=== PATIENT | female | born 1980 | race Caucasian/White ===

== ENCOUNTER 2020-03-23 08:40 | Emergency (ER) | payer OTHER, SELFPAY ==
[2020-03-23 08:43] VITALS: BP 151/100; PULSE 100; RESP 18; TEMP 36.8; O2SAT 100; BMI 22.6
--- NOTE | 2020-03-23 09:18 | XR_ITS ---
EXAMINATION: XR CHEST CLINICAL INFORMATION: Patient feeling short of breath, no cough COMPARISON: None TECHNIQUE: 2 views of the chest were obtained. FINDINGS: There is no focal consolidation. There is no pneumothorax. The trachea is midline. The cardiac mediastinal silhouette is not enlarged. There is no pleural effusion. Osseous structures are intact. Soft tissues are unremarkable. XR/XR chest 2V IMPRESSION: No acute cardiopulmonary process.
--- NOTE | 2020-03-23 09:20 | ECG_ITS ---
Test Reason : SOB Blood Pressure : / mmHG Vent. Rate : 064 BPM Atrial Rate : 064 BPM P-R Int : 142 ms QRS Dur : 082 ms QT Int : 400 ms P-R-T Axes : 077 042 062 degrees QTc Int : 412 ms Normal sinus rhythm Possible Left atrial enlargement Borderline ECG No previous ECGs available Referred By: Charissa Saeed Electronically Signed By:Bronson Boothe
--- NOTE | 2020-03-23 09:25 | ED_ITS ---
HPI - SOB/Dyspnea General Chief Complaint: Anxiety Stated Complaint: sob Time Seen by Provider: 03/23/20 09:08 Source: patient Mode of arrival: ambulatory Limitations: no limitations History of Present Illness HPI Narrative: 40yoF c PMHx of Bipolar presenting to the ED c c/o sob since tuesday. She reports she feels as she cannot catch her breath. Reports she also has been under lot of stress therefore is unsure if this is anxiety although has never felt this way and has had anxiety in the past. Denies any dizziness, headaches, changes in vision, N/V, paresthesias, chest pain, dyspnea on exertion, orthopnea, symptoms, extremity swelling, palpitations or any other symptoms complaints or concerns at this time. Related Data Previous Rx's Medication Instructions Recorded bacitracin zinc 500 unit/gram 1 appl TOPICAL BID 15 Days #14 g 02/18/20 topical ointment divalproex 250 mg tablet,delayed 250 mg PO BID 90 Days #180 tab 03/17/20 release cetirizine 10 mg tablet 10 mg PO DAILY 30 Days #30 tab 03/18/20 lorazepam [Ativan] 1 mg PO TID PRN #10 tab 03/23/20 Allergies Allergy/AdvReac Type Severity Reaction Status Date / Time No Known Allergies Allergy Unverified 11/29/19 18:19 [No Known Allergies*] barium sulfate AdvReac Unknown aggression Verified 03/28/18 00:00 Review of Systems Review of Systems: Constitutional : No OCPs, no recent surgery/trauma, no history of immobilization, no history of PE or DVT, denies recent travel, No Fever, No Chills ENT/Mouth : No Hoarseness, No sore throat, No Rhinorrhea Eyes: No Redness, No Discharge, No Vision Changes Cardiovascular : No Chest Pain, + SOB, No Dyspnea on Exertion, No Edema, no pleurisy, Respiratory : No Sputum, no stridor, no hemoptysis, Gastrointestinal : No Nausea, No Vomiting, No Diarrhea, No abdominal Pain Genitourinary : No Dysuria, No Hematuria Musculoskeletal : No joint pain, No Myalgias Extremities: no extremity swelling /pain Skin : No rash, no itching, no swelling Neuro : No Weakness, No Numbness, No Headache Psych : No anxiety, depression Heme/Lymph: No Bruising, No Bleeding Endocrine : No Polyuria, No Polydipsia Yes all other systems are reviewed and are negative [facility] Past Medical History Attestation statement: The following information was validated with the patient. Medical History Scar irritation Social History Social History Advance Directives: No Advance Directives Information Provided: No Physical Exam Vital Signs: Vital Signs: Last Vital Signs Temp 98.3 F 03/23/20 08:43 Pulse 100 03/23/20 08:43 Resp 18 03/23/20 08:43 BP 151/100 H 03/23/20 08:43 Pulse Ox 100 03/23/20 08:43 Body Mass Index 22.6 vital signs have been reviewed as normal and appeared to be correct. Blood pressure normal. Heart rate normal. Respiration rate normal. Temperature normal. Oxygen saturation normal. Appearance: Alert. Oriented X3. No acute distress. Head: Normal external exam. Normocephalic. Atraumatic. Eyes: PERRLA. EOMI. Conjunctiva and sclera normal. Eyelids normal. ENT:Pharynx normal. Uvula midline. Moist mucous membranes. No trismus noted. No drooling noted. No muffled voice noted. Neck: Normal inspection. Neck supple. FROM. No adenopathy. No meningeal signs. CVS: Normal heart rate and rhythm. Heart sound normal. No murmurs noted. Pulses normal throughout. Respiratory: No respiratory distress. Painless inspiration. Breath sounds normal. No wheezes/rales/rhonchi noted. Chest nontender. No accessory muscle usage noted or decreased air movement noted. Back: No CVA tenderness. Full range of motion noted. Skin: Skin warm and dry. Normal skin color. Normal skin turgor. No rashes/lesions/lacerations noted. Extremities: No lower extremity edema. No calf tenderness bilaterally. Extremities exhibit normal range of motion. Extremities nontender. Neuro: Oriented X 3. No motor deficit. No sensory deficit. Reflexes normal. Course Course Course Narrative: 9:20am - 40yoF c PMHx of Bipolar presenting to the ED c c/o sob since tuesday. - Concern for PE vs PNA vs Anxiety - Plan: Labs, CXR, EKG and re-evaluate Reevaluation(s) Reevaluation #1: - WBC 13,000. All other labs including a D-dimer is within normal limits. Chest x-ray within normal limits no evidence of acute processes noted. EKG normal sinus rhythm no acute ischemic changes noted. Patient most likely anxiety will DC home with a short script of Ativan and instructions to return if any new or worsening symptoms to follow up with primary care provider. Patient understands agrees the plan. Time: 10:32 MDM - SOB/Dyspnea Medical Records Attestation: I reviewed the patient's medical records. Lab Data Attestation: I reviewed the patient's lab results. Result diagrams: 03/23/20 09:34 03/23/20 09:34 Labs: Lab Results 03/23/20 03/23/20 03/23/20 Range/Units 09:34 09:34 09:34 WBC 13.1 H (4.8-10.8) X10*3/uL RBC 4.97 (4.20-5.50) X10*6/uL Hgb 15.1 (12.0-16.0) g/dl Hct 44.4 (37-47) % MCV 89.3 (80-98) fL MCH 30.4 (27.0-33.0) pg MCHC 34.0 (31.0-35.0) g/dl RDW 12.3 (11.0-16.0) % Plt Count 175 (160-400) X10*3/uL MPV 10.4 (9.4-12.3) fL Immature Gran % (Auto) 0.4 (0.0-0.4) % Neut % (Auto) 85.6 H (45-73) % Lymph % (Auto) 9.8 L (20-40) % [place] % (Auto) 3.3 (2-11) % Eos % (Auto) 0.4 (0-4) % Baso % (Auto) 0.5 (0-2) % Lymph # (Auto) 1.3 (1.2-4.9) X10*3/uL [place] # (Auto) 0.4 (0.1-1.2) X10*3/uL Eos # (Auto) 0.1 (0.0-0.4) X10*3/uL Baso # (Auto) 0.1 (0.0-0.2) X10*3/uL Abs Immat Gran (auto) 0.05 H (0.00-0.03) X10*3/uL Absolute Neuts (auto) 11.2 H (2.0-8.3) X10*3/uL Absolute Nucleated RBC 0.000 (0.0-0.012) X10*3/uL Nucleated RBC % (auto) 0.0 (0.0-0.2) /100WBC Hold Purple Top SEE NOTE PT (10.8-13.0) SEC INR (0.9-1.1) D-Dimer NG/ML Sodium 140 (135-145) mmol/L Potassium 4.8 (3.3-5.1) mmol/l Chloride 107 (96-108) mmol/L Carbon Dioxide 25 (22-29) mmol/L Anion Gap 13 (12-20) BUN 7 L (9-16) mg/dL Creatinine 0.71 (0.5-1.4) mg/dL Estim Creat Clear Calc 80.2 Estimated GFR > 60 Random Glucose 103 (60-115) mg/dL Calcium 9.2 (8.4-10.2) mg/dL 03/23/20 Range/Units 09:34 WBC (4.8-10.8) X10*3/uL RBC (4.20-5.50) X10*6/uL Hgb (12.0-16.0) g/dl Hct (37-47) % MCV (80-98) fL MCH (27.0-33.0) pg MCHC (31.0-35.0) g/dl RDW (11.0-16.0) % Plt Count (160-400) X10*3/uL MPV (9.4-12.3) fL Immature Gran % (Auto) (0.0-0.4) % Neut % (Auto) (45-73) % Lymph % (Auto) (20-40) % [place] % (Auto) (2-11) % Eos % (Auto) (0-4) % Baso % (Auto) (0-2) % Lymph # (Auto) (1.2-4.9) X10*3/uL [place] # (Auto) (0.1-1.2) X10*3/uL Eos # (Auto) (0.0-0.4) X10*3/uL Baso # (Auto) (0.0-0.2) X10*3/uL Abs Immat Gran (auto) (0.00-0.03) X10*3/uL Absolute Neuts (auto) (2.0-8.3) X10*3/uL Absolute Nucleated RBC (0.0-0.012) X10*3/uL Nucleated RBC % (auto) (0.0-0.2) /100WBC Hold Purple Top PT 12.2 (10.8-13.0) SEC INR 1.0 (0.9-1.1) D-Dimer < 200 NG/ML Sodium (135-145) mmol/L Potassium (3.3-5.1) mmol/l Chloride (96-108) mmol/L Carbon Dioxide (22-29) mmol/L Anion Gap (12-20) BUN (9-16) mg/dL Creatinine (0.5-1.4) mg/dL Estim Creat Clear Calc Estimated GFR Random Glucose (60-115) mg/dL Calcium (8.4-10.2) mg/dL Imaging Data Chest x-ray: Attestation: I personally reviewed and interpreted this imaging study as follows: Radiologist's impression: FINDINGS: There is no focal consolidation. There is no pneumothorax. The trachea is midline. The cardiac mediastinal silhouette is not enlarged. There is no pleural effusion. Osseous structures are intact. Soft tissues are unremarkable. IMPRESSION: No acute cardiopulmonary process. ECG Data Attestation: I personally reviewed and interpreted this ECG as follows: ECG interpretation date: 03/23/20 ECG interpretation time: 10:01 Interpretation: Normal sinus rhythm with a ventricular rate of 64 with a normal [place] interval normal QRS duration normal QT/QTC interval. No acute ischemic changes noted. Discharge Plan Discharge Clinical Impression: Acute anxiety, Hyperventilation Patient Disposition: Home, Self-Care Instructions: Hyperventilation (ED), Anxiety (ED) Prescriptions: New lorazepam [Ativan] 1 mg tablet 1 mg PO TID PRN (Reason: anxiety) Qty: 10 RF: 0 No Action divalproex 250 mg tablet,delayed release (DR/EC) 250 mg PO BID 90 Days Qty: 180 RF: 3 cetirizine [Zyrtec] 10 mg tablet 10 mg PO DAILY 30 Days Qty: 30 RF: 6 bacitracin zinc [Antibiotic (bacitracin zinc)] 500 unit/gram ointment 1 appl topical BID 15 Days Qty: 14 RF: 0 Referrals: Zoe Mitchell MD [Primary Care Provider] - 2 days Stand Alone Forms: Work/School Release Print Language: [place]
[2020-03-23 09:43] LABS: Basophils Absolute Auto 0.1 X10*3/uL (0.0-0.2); Basophils Percent Auto 0.5 % (0-2); Eosinophils Absolute Auto 0.1 X10*3/uL (0.0-0.4); Eosinophils Percent Auto 0.4 % (0-4); Hematocrit 44.4 % (37-47); Hemoglobin 15.1 g/dl (12.0-16.0); Imm Gran Abs Auto 0.05 X10*3/uL (0.00-0.03); Imm Gran Pct Auto 0.4 % (0.0-0.4); Lymphocytes Absolute Auto 1.3 X10*3/uL (1.2-4.9); Lymphocytes Percent Auto 9.8 % (20-40); MANUAL DIFF FLAG NO; Mean Corpuscular Hemoglobin 30.4 pg (27.0-33.0); Mean Corpuscular Volume 89.3 fL (80-98); Mean Platelet Volume 10.4 fL (9.4-12.3); Monocytes Absolute Auto 0.4 X10*3/uL (0.1-1.2); Monocytes Percent Auto 3.3 % (2-11); Neutrophils Absolute Auto 11.2 X10*3/uL (2.0-8.3); Neutrophils Percent Auto 85.6 % (45-73); Platelet Count 175 X10*3/uL (160-400); Red Blood Count 4.97 X10*6/uL (4.20-5.50); Red Cell Distribution Width 12.3 % (11.0-16.0); White Blood Count 13.1 X10*3/uL (4.8-10.8)
[2020-03-23 09:46] LABS: Prothrombin Time 12.2 SEC (10.8-13.0)
[2020-03-23 09:56] LABS: D Dimer < 200 NG/ML
[2020-03-23 10:00] LABS: Anion Gap 13 (12-20); Blood Urea Nitrogen 7 mg/dL (9-16); Calcium 9.2 mg/dL (8.4-10.2); Carbon Dioxide 25 mmol/L (22-29); Chloride 107 mmol/L (96-108); Creatinine Clr Calc Pharmacy 80.2; Estimated Glomerular Filt Rate > 60; Glucose Random 103 mg/dL (60-115); Potassium 4.8 mmol/l (3.3-5.1); Sodium 140 mmol/L (135-145)
== END 2020-03-23 11:04 | disposition home or self-care (01) ==
PROVIDERS: Physician Assistant Medical; Emergency Provider Emergency Medicine; PCP Internal Medicine
DX: F41.1 Generalized anxiety disorder (principal); F43.0 Acute stress reaction; R06.02 Shortness of breath; Z79.899 Other long term (current) drug therapy
CPT/HCPCS: 36415; 71046; 80048; 85025; 85379; 85610; 93005; 99283

== ENCOUNTER 2020-05-13 10:31 | Outpatient (REF) | payer OTHER, SELFPAY ==
[2020-05-13 13:38] LABS: MANUAL DIFF FLAG NO
[2020-05-13 13:43] LABS: Basophils Absolute Auto 0.1 X10*3/uL (0.0-0.2); Basophils Percent Auto 0.7 % (0-2); Eosinophils Absolute Auto 0.1 X10*3/uL (0.0-0.4); Eosinophils Percent Auto 0.7 % (0-4); Hematocrit 42.7 % (37-47); Hemoglobin 14.7 g/dl (12.0-16.0); Imm Gran Abs Auto 0.03 X10*3/uL (0.00-0.03); Imm Gran Pct Auto 0.3 % (0.0-0.4); Lymphocytes Percent Auto 20.4 % (20-40); Mean Corpuscular HGB Conc 34.4 g/dl (31.0-35.0); Mean Corpuscular Hemoglobin 30.8 pg (27.0-33.0); Mean Corpuscular Volume 89.5 fL (80-98); Monocytes Absolute Auto 0.4 X10*3/uL (0.1-1.2); Monocytes Percent Auto 4.2 % (2-11); Neutrophils Percent Auto 73.7 % (45-73); Platelet Count 164 X10*3/uL (160-400); Red Blood Count 4.77 X10*6/uL (4.20-5.50); Red Cell Distribution Width 12.3 % (11.0-16.0); White Blood Count 9.6 X10*3/uL (4.8-10.8)
[2020-05-13 14:22] LABS: Anion Gap 12 (12-20); Blood Urea Nitrogen 11 mg/dL (9-16); Calcium 9.2 mg/dL (8.4-10.2); Carbon Dioxide 27 mmol/L (22-29); Chloride 104 mmol/L (96-108); Estimated Glomerular Filt Rate > 60; Glucose Fasting 77 mg/dL (60-99); Potassium 4.8 mmol/L (3.3-5.1); Sodium 138 mmol/L (135-145)
== END 2020-05-13 10:32 | disposition home or self-care (01) ==
LOC: HO.10HDL 10:31
PROVIDERS: Absent Provider Nurse Practitioner Family; Visit Provider Internal Medicine
DX: L90.5 Scar conditions and fibrosis of skin (principal); D72.829 Elevated white blood cell count, unspecified
CPT/HCPCS: 36415; 80048; 85025

== ENCOUNTER 2020-11-13 09:15 | Outpatient (REF) | payer OTHER, SELFPAY ==
[2020-11-13 10:43] LABS: Hemoglobin 15.2 g/dl (12.0-16.0); Mean Corpuscular HGB Conc 33.8 g/dl (31.0-35.0); Mean Corpuscular Hemoglobin 30.2 pg (27.0-33.0); Mean Corpuscular Volume 89.5 fL (80-98); Mean Platelet Volume 11.1 fL (9.4-12.3); Platelet Count 195 X10*3/uL (160-400); Red Blood Count 5.03 X10*6/uL (4.20-5.50); White Blood Count 10.4 X10*3/uL (4.8-10.8)
[2020-11-13 11:04] LABS: Alanine Aminotransferase 14 U/L (0-31); Albumin Level 4.4 g/dL (3.5-5.0); Alkaline Phosphatase 61 U/L (39-117); Aspartate Amino Transferase 19 U/L (5-31); Bilirubin Direct 0.2 mg/dL (0.0-0.5); Bilirubin Total 0.5 mg/dL (0.0-1.0); Total Protein 6.6 g/dL (6.5-8.0)
[2020-11-13 11:13] LABS: Valproate 75.7 mcg/mL (50.0-100.0)
== END 2020-11-13 09:16 | disposition home or self-care (01) ==
LOC: HO.10HDL 09:15
PROVIDERS: Visit Provider Internal Medicine
DX: F31.9 Bipolar disorder, unspecified (principal); D72.829 Elevated white blood cell count, unspecified; Z79.899 Other long term (current) drug therapy
CPT/HCPCS: 36415; 80076; 80164; 85027

== ENCOUNTER 2021-02-26 11:09 | Outpatient (REF) | payer OTHER, SELFPAY ==
--- NOTE | ~2021-02-26 | XR_ITS ---
EXAMINATION: XR FACIAL BONES CLINICAL INFORMATION: Evaluate for foreign body. COMPARISON: None TECHNIQUE: 3 views of the facial bones were obtained. FINDINGS: There is no radiopaque foreign body seen in the orbits. The bony orbits and the maxilla facial bones are unremarkable. There is moderate mucoperiosteal thickening left maxillary sinus. Rest of the paranasal sinuses and mastoid air cells are well-aerated. XR/XR facial bones <3V IMPRESSION: No radiopaque metallic foreign body seen in the orbits.
== END 2021-02-26 11:10 | disposition home or self-care (01) ==
LOC: HO.XRAY 11:09
PROVIDERS: PCP Internal Medicine; Visit Provider Plastic Surgery
DX: R51.9 Headache, unspecified (principal)
CPT/HCPCS: 70140

== ENCOUNTER 2021-10-12 09:19 | Emergency (ER) | payer OTHER, SELFPAY ==
[2021-10-12 09:26] VITALS: BP 150/80; PULSE 94; RESP 16; TEMP 37.1; O2SAT 99; BMI 22.1
--- NOTE | 2021-10-12 09:55 | ED.GENADULT ---
HPI - General Adult General Chief complaint: Skin/Abscess/Foreign Body Stated complaint: staf infection Time Seen by Provider: 10/12/21 09:51 Source: patient Mode of arrival: ambulatory Limitations: no limitations History of Present Illness HPI narrative: 41-year-old female with a past medical history of anxiety and bipolar type 1 disorder, presents with a chief complaint of a right groin lesion. Patient states that she noticed that she had an ingrown hair last 10/05/21. She states that the ingrown hair developed into a boil over a few days. She then went to the [place] and states she went into the water thinking that the salt would help the lesion. The lesion continued to develop and today is approximately the size of a dime. Patient endorses applying anti-bacterial OTC topical cream starting yesterday and taking a left over PO antibiotic from a previous staph infection that occurred 2 months ago. Patient denies any dizziness, lightheadedness, abdominal pain, nausea, vomiting, fever, chills, blurry vision, double vision, loss of vision, chest pain, difficulty breathing, shortness of breath, night sweats, pain with urination, increased urinary frequency, increased urinary urgency, blood in her urine or stool, syncope or a near syncopal episode, recent trauma or falls, bowel incontinence, bladder incontinence, bowel retention, bladder retention, or any other complaints at this time. Onset (ago): week(s) (Develping since 10/05/21. ) Location: genitals (Right groin.) Radiation: non-radiation Severity: moderate Severity scale (1-10): 1 Quality: burning Pain Consistency: constant Relieving factors: other (Loose fitting clothing. ) Exacerbating factors: none Associated symptoms: denies other symptoms Treatments prior to arrival: other (OTC anti-bacterial cream and patient endorses to taking left over antibiotics (though she could not recall name). ) Related Data Previous Rx's Medication Instructions Recorded varenicline 0.5 mg tablet 0.5 mg PO DAILY 3 days #3 tabs 01/06/21 varenicline 1 mg tablet 1 mg PO BID 30 days #60 tabs 03/04/21 divalproex 500 mg tablet,delayed 500 mg PO BID 30 days #60 tabs 04/13/21 release nicotine 21 mg/24 hr daily 1 patch transdermal DAILY 28 days 06/15/21 transdermal patch #28 ea lorazepam 1 mg tablet (Ativan) 1 mg PO TID PRN anxiety 30 days 09/15/21 #90 tabs cephalexin 500 mg capsule 500 mg PO Q6H 7 days #28 caps 10/12/21 doxycycline hyclate 100 mg tablet 100 mg PO BID 7 days #14 tabs 10/12/21 Allergies Allergy/AdvReac Type Severity Reaction Status Date / Time barium sulfate AdvReac Intermediate aggression Verified 01/06/21 10:01 Review of Systems Constitutional: Constitutional: Reports no additional constitutional complaints, Denies chills, Denies fever(s) and Denies night sweats Eyes: Eyes: Reports no additional eye complaints, Denies blurry vision, Denies change in vision, Denies diplopia, Denies eye discharge, Denies loss of vision and Denies eye pain ENT: Denies dizziness Cardiovascular: Cardiovascular: Reports no additional cardiovascular complaints, Denies chest pain, Denies lightheadedness, Denies Loss of Consciousness and Denies dyspnea Respiratory: Respiratory: Reports no additional respiratory complaints and Denies dyspnea Gastrointestinal: Gastrointestinal: Reports no additional gastrointestinal complaints, Denies abdominal pain, Denies melena, Denies hematochezia, Denies change in bowel habits and Denies change in stool character Genitourinary: Genitourinary: Denies hematuria, Denies urinary frequency, Reports genital lesions (Right groin. 1.5 cm), Denies dysuria, Denies urinary incontinence, Denies urinary hesitancy and Denies urinary urgency Musculoskeletal: Musculoskeletal: Reports no additional musculoskeletal complaints, Denies numbness and Denies tingling Neurologic: Denies dizziness, Denies loss of vision, Denies numbness and Denies tingling Psychiatric: Psychiatric: Reports no additional psychiatric complaints Endocrine: Endocrine: Reports no additional endocrine complaints Hematologic/Lymphatic: Hematologic/Lymphatic: Reports no additional hematologic/lymphatic complaints Allergic/Immunologic: Allergic/Immunologic: Reports no additional allergic/immunologic complaints PMFSH Past Medical History Attestation statement: The following information was validated with the patient. Source: old records reviewed Medical History Anxiety Leukocytosis Scar irritation Smoker Surgical History No pertinent past surgical history Family History Family History Father No problems noted. Mother Cancer Family/Other Substance use disorder Mental health disorder Social History Social History Housing: Apartment Alcohol intake: former Patient Tobacco Use Status: Current everyday Tobacco user Tobacco use type: Cigarette Cigarette Packs Per Day: 1 Cigarettes Per Day: 20 e-Cigarette/Vaping Use: Never Used Second Hand Smoke Exposure: No service: No Current occupational status: employed Current occupational exposures/hazards: No Physical Exam ED Vital Signs: Vital Signs - 24 hr 10/12/21 09:26 Temperature 98.7 F Pulse Rate 94 Respiratory Rate 16 Blood Pressure 150/80 H Pulse Oximetry 99 Oxygen Delivery Method Room Air BMI result Body Mass Index 22.1 Const General: cooperative, no acute distress, alert and awake Nutritional Appearance: well nourished Orientation/consciousness: patient oriented x3 Limitations: no limitations HENMT Head: Yes normal to inspection and Yes atraumatic Ears: hearing grossly normal bilaterally and external ears normal General nose exam: Normal external nose present, no nasal discharge noted and no epistaxis Face and sinus: Yes normal facial exam, No abrasion and No laceration Mouth: Normal oral and palatal mucosa present, no drooling and no muffled voice Eyes General: appearance normal, both eyes and all related structures Periorbital: periorbital findings normal Eyelids: Yes eyelids normal Conjunctivae: conjunctivae normal Pupils: Equal, round and reactive pupils present EOM: EOMs intact bilaterally Neck Neck: Yes normal visual inspection, Yes full ROM and Yes no lymphadenopathy Chest Chest palpation & inspection: normal inspection of the chest Resp Effort & Inspection: normal respiratory effort and able to speak in complete sentences Auscultation: clear to auscultation bilaterally Cardio Rate: regular rate Rhythm: regular rhythm GI Inspection: Yes normal to inspection External Female Exam: lesion (Right groin. 1.5 cm; tunneling observed. ) Female genitals images: 1. Right groin lesion. Neuro General: patient oriented x3 and moves all extremities Cranial nerves: Yes Equal, round and reactive pupils present Cognition (Neuro): normal cognition Motor exam (neuro): 5/5 motor strength present throughout Sensory Exam: Normal double simultaneous stimulation for sensation Coordination: [id number] test normal Extrem General: Yes normal to inspection, Yes full ROM and Yes capillary refill normal Psych Appearance: grossly normal Mental Status: mental status grossly normal Affect: normal affect Attitude: cooperative Thought process: Normal thought process present Thought content: Normal thought content present Insight: Good insight present (Psych) Medical Decision Making MDM Narrative Medical decision making narrative: Patient is a 41 year old female presenting to the emergency department today with a lesion on her right groin. Patient's physical exam showed a small lesion to the right side of groin with active purulent discharge and minimal tunneling. I explained my physical exam findings to the patient. I answered all questions asked by the patient. I stressed the importance of the patient keeping the area dry and clean. I stressed the importance of the patient NOT soaking the lesion. I stressed the importance of the patient taking her medication as prescribed. I stressed the importance of the patient following up with her primary care provider and a general surgeon. I stressed the importance of the patient returning to the emergency department immediately if her symptoms were to worsen or if she were to develop any dizziness, shortness of breath, difficulty breathing, chest pain, blurry vision, loss of vision, nausea, vomiting, abdominal pain, fever, chills, back pain, or any other complaints. Patient verbalized agreement and understanding with this treatment plan and discharge. Differential Diagnosis Differential Diagnosis: folliculitis vs. abscess Medical Records Medical records reviewed: Yes I reviewed the patient's medical records. Discharge Plan Discharge Clinical Impression: Abscess Patient Disposition: Home, Self-Care Instructions: Abscess (ED) Additional Instructions: Follow up with your primary care provider and a general surgeon. Return to the emergency department immediately if your symptoms worsen or if you develop any dizziness, shortness of breath, difficulty breathing, chest pain, blurry vision, loss of vision, nausea, vomiting, abdominal pain, fever, chills, back pain, or any other complaints. Prescriptions: New cephalexin 500 mg capsule 500 mg PO Q6H 7 Days Qty: 28 0RF doxycycline hyclate 100 mg tablet 100 mg PO BID 7 Days Qty: 14 0RF No Action varenicline 1 mg tablet 1 mg PO BID 30 Days Qty: 60 1RF divalproex 500 mg tablet,delayed release (DR/EC) 500 mg PO BID 30 Days Qty: 60 6RF nicotine 21 mg/24 hr patch 24 hour 1 patch transdermal DAILY 28 Days Qty: 28 0RF lorazepam [Ativan] 1 mg tablet 1 mg PO TID PRN (Reason: anxiety) 30 Days Qty: 90 0RF varenicline 0.5 mg tablet 0.5 mg PO DAILY 3 Days Qty: 3 0RF Referrals: [facility] [place] General Surgeons [Provider Group] Zoe Mitchell MD [Primary Care Provider] - Stand Alone Forms: Work/School Release Interventions: ED Discharge Assessment Last Done: 10/12/21 11:20 Discharge Date/Time: 10/12/21 11:23 Print Language: Ivorian
--- NOTE | 2021-10-12 11:19 | PC.NURSE ---
PT WAS EVALUATED BY PROVIDER. ABSCESS EVALUATED. PLAN IS FOR DC HOME WITH ORAL ABX AND F/U WITH SURGEON. DRESSING SUPPLIES PROVIDED. PT AGREEABLE TO DC HOME.
== END 2021-10-12 11:23 | disposition home or self-care (01) ==
PROVIDERS: Emergency Provider Emergency Medicine; PCP Internal Medicine
DX: L02.214 Cutaneous abscess of groin (principal); F17.210 Nicotine dependence, cigarettes, uncomplicated; Z71.6 Tobacco abuse counseling; Z79.899 Other long term (current) drug therapy
CPT/HCPCS: 99281; 99282

== ENCOUNTER 2022-03-05 14:40 | Emergency (ER) | payer OTHER, SELFPAY ==
[2022-03-05 15:11] VITALS: BP 137/64; PULSE 98; RESP 18; TEMP 36.7; O2SAT 98; BMI 20.7
--- NOTE | 2022-03-05 15:11 | ED.GENADULT ---
HPI - General Adult General Chief complaint: General Medical Stated complaint: sore throat Time Seen by Provider: 03/05/22 16:24 Source: patient Mode of arrival: ambulatory Limitations: no limitations History of Present Illness HPI narrative: 42-year-old female with history of bipolar 1, anxiety my active smoker presents to the ER for evaluation of sore throat and headache that started this morning. She states it has been getting worse throughout the day. She had to leave work early because her sore throat. She describes as the sensation of swallowing razor blades. She denies any fever or chills but reports a generalized headache. No cough, runny nose, sinus pressure, chest pain, shortness of breath. No known nausea, vomiting, diarrhea or abdominal pain. No known sick contacts. complaint: Sore throat Onset (ago): hour(s) Location: mouth Radiation: non-radiation Severity: severe Quality: sharp Pain Consistency: constant Relieving factors: rest Exacerbating factors: eating Associated symptoms: denies other symptoms Treatments prior to arrival: none Related Data Previous Rx's Medication Instructions Recorded divalproex 500 mg tablet,delayed 500 mg PO BID 30 days #60 tabs 11/30/21 release lorazepam 1 mg tablet (Ativan) 1 mg PO TID PRN anxiety 30 days 02/09/22 #90 tabs Allergies Allergy/AdvReac Type Severity Reaction Status Date / Time barium sulfate AdvReac Intermediate aggression Verified 02/09/22 12:48 Review of Systems Review of Systems: Constitutional: No Fever, No Chills ENT/Mouth: + sore throat, No Rhinorrhea, No Swallowing Difficulty Cardiovascular: No Chest Pain, No SOB Respiratory: No Cough, No Sputum Gastrointestinal: No Nausea, No Vomiting, No Diarrhea, No abdominal Pain Musculoskeletal: No joint pain, No Myalgias Skin: No Skin Lesions, No rash Neuro: No Weakness, No Numbness, No Dizziness, + Headache Heme/Lymph: No Bruising, No Lymphadenopathy PMFSH Past Medical History Medical History Anxiety Leukocytosis Scar irritation Smoker Surgical History No pertinent past surgical history Family History Family History Father No problems noted. Mother Cancer Family/Other Substance use disorder Mental health disorder Social History Social History Housing: Apartment Alcohol intake: former Patient Tobacco Use Status: Current everyday Tobacco user Tobacco use type: Cigarette Cigarette Packs Per Day: 1 Cigarettes Per Day: 20 e-Cigarette/Vaping Use: Never Used Second Hand Smoke Exposure: No Advance Directives: No Advance Directives Information Provided: No service: No Current occupational status: employed Current occupational exposures/hazards: No Cognitive needs: No Hearing needs: No Vision needs: No Physical Exam ED Vital Signs: Vital Signs - 24 hr 03/05/22 15:11 Temperature 98.1 F Pulse Rate 98 Respiratory Rate 18 Blood Pressure 137/64 Pulse Oximetry 98 Oxygen Delivery Method Room Air BMI result Body Mass Index 20.7 Appearance: Alert. Oriented X3. No acute distress. HEENT: normal external inspection, pharynx with moist mucous membranes. Mild generalized posterior oropharyngeal erythema without any tonsillar swelling or exudate. Tonsils are not visualized. Uvula is midline. Normal voice, handling secretions normally. CVS: Normal heart rate and rhythm. Pulses normal. Respiratory: No respiratory distress. Lungs are clear throughout. Skin: Skin warm and dry. Normal skin color. Normal skin turgor. No rashes. Extremities: Normal inspection x4, normal range of motion Neuro: Oriented X 3. Nonfocal Course Course Course Narrative: 42 yo female with hx anxiety, bipolar disorder, active smoker who is presenting with sore throat and headache that started today. No known sick contacts. No SOB or chest pain. VSS and appears well. Will check Viral PCR and Strep swabs. Reevaluation(s) Reevaluation #1: Negative for strep, covid, flu and RSV. Stable for d/c home with supportive care. Medical Decision Making Lab Data Labs: Lab Results 03/05/22 03/05/22 Range/Units 15:17 15:17 Influenza Type A (PCR) NEGATIVE (Negative) Influenza Type B (PCR) NEGATIVE (Negative) RSV RNA Qual (PCR) NEGATIVE (Negative) SARS-CoV-2 RNA (RT-PCR) NEGATIVE (Negative) S. pyogenes GrpA MAYNOR Negative (Negative) Discharge Plan Discharge Clinical Impression: Acute viral pharyngitis Patient Disposition: Home, Self-Care Instructions: Pharyngitis (ED) Additional Instructions: You tested negative for Flu, COVID, RSV, and Strep throat. Use warm salt water gargles and over the counter Chloraseptic spray for your sore throat. Take over the counter cold/flu medications as needed for your symptoms. Follow up with your docotr as needed. Prescriptions: No Action divalproex 500 mg tablet,delayed release (DR/EC) 500 mg PO BID 30 Days Qty: 60 6RF lorazepam [Ativan] 1 mg tablet 1 mg PO TID PRN (Reason: anxiety) 30 Days Qty: 90 0RF Referrals: Zoe Mitchell MD [Primary Care Provider] - Stand Alone Forms: Work/School Release
[2022-03-05 15:47] LABS: Strep A Nucleic Acid Negative (Negative)
[2022-03-05 16:10] LABS: Influenza A PCR NEGATIVE (Negative); Influenza B PCR NEGATIVE (Negative); Resp Syncy Virus RNA Qual PCR NEGATIVE (Negative); SARS COV2 PCR INHOUSE NEGATIVE (Negative)
== END 2022-03-05 16:34 | disposition home or self-care (01) ==
PROVIDERS: Physician Assistant; Emergency Provider Emergency Medicine; PCP Internal Medicine
DX: J02.9 Acute pharyngitis, unspecified (principal); R51.9 Headache, unspecified; F17.210 Nicotine dependence, cigarettes, uncomplicated; Z20.822 Contact with and (suspected) exposure to COVID-19; Z79.899 Other long term (current) drug therapy; Z71.6 Tobacco abuse counseling
CPT/HCPCS: 0241U; 36415; 87651; 99282; 99283

== ENCOUNTER → 2022-04-14 09:22 | Outpatient (REF) | payer OTHER, SELFPAY ==
--- NOTE | 2022-04-14 09:28 | ECG_ITS ---
Test Reason : ANXIETY Blood Pressure : / mmHG Vent. Rate : 074 BPM Atrial Rate : 074 BPM P-R Int : 138 ms QRS Dur : 086 ms QT Int : 394 ms P-R-T Axes : 080 031 057 degrees QTc Int : 437 ms Normal sinus rhythm with sinus arrhythmia Possible Left atrial enlargement Borderline ECG When compared with ECG of 23-MAR-2020 10:01, No significant change was found Referred By: Zoe Portillo Electronically Signed By:Bronson Boothe
== END ==
LOC: HO.CARD 09:22
PROVIDERS: PCP Internal Medicine; Visit Provider Internal Medicine
DX: Z01.818 Encounter for other preprocedural examination (principal); F41.9 Anxiety disorder, unspecified
CPT/HCPCS: 93005

== ENCOUNTER 2022-04-21 08:35 | Outpatient (REF) | payer OTHER, SELFPAY ==
[2022-04-21 10:40] LABS: MANUAL DIFF FLAG NO
[2022-04-21 10:43] LABS: Basophils Absolute Auto 0.1 X10*3/uL (0.0-0.2); Basophils Percent Auto 0.7 % (0-2); Eosinophils Absolute Auto 0.1 X10*3/uL (0.0-0.4); Hematocrit 41.8 % (37.0-47.0); Hemoglobin 14.2 g/dl (12.0-16.0); Imm Gran Abs Auto 0.05 X10*3/uL (0.00-0.03); Imm Gran Pct Auto 0.5 % (0.0-0.4); Lymphocytes Absolute Auto 1.8 X10*3/uL (1.2-4.9); Lymphocytes Percent Auto 17.8 % (20-40); Mean Corpuscular Hemoglobin 30.9 pg (27.0-33.0); Mean Corpuscular Volume 90.9 fL (80.0-98.0); Mean Platelet Volume 10.8 fL (9.4-12.3); Monocytes Absolute Auto 0.5 X10*3/uL (0.1-1.2); Monocytes Percent Auto 4.7 % (2-11); Neutrophils Absolute Auto 7.8 x10*3/uL (2.0-8.3); Neutrophils Percent Auto 75.3 % (45-73); Platelet Count 153 X10*3/uL (160-400); Red Cell Distribution Width 12.5 % (11.0-16.0); White Blood Count 10.3 X10*3/uL (4.8-10.8)
[2022-04-21 11:36] LABS: Alanine Aminotransferase 9 U/L (0-31); Alkaline Phosphatase 47 U/L (39-117); Anion Gap 14 (12-20); Aspartate Amino Transferase 13 U/L (5-31); Bilirubin Total 0.5 mg/dL (0.0-1.0); Blood Urea Nitrogen 9 mg/dL (9-16); Calcium 8.9 mg/dL (8.4-10.2); Carbon Dioxide 23 mmol/L (22-29); Chloride 107 mmol/L (96-108); Cholesterol 167 mg/dL; Estimated Glomerular Filt Rate > 60; Glucose Fasting 86 mg/dL (60-99); HDL Cholesterol 41 mg/dL; LDL Cholesterol Calculated 110 mg/dl; Potassium 4.4 mmol/L (3.3-5.1); Sodium 140 mmol/L (135-145); Total Protein 6.1 g/dL (6.5-8.0); Triglycerides 83 mg/dL
== END 2022-04-21 08:36 | disposition home or self-care (01) ==
LOC: HO.10HDL 08:35
PROVIDERS: Visit Provider Internal Medicine
DX: Z00.00 Encounter for general adult medical examination without abnormal findings (principal); F41.9 Anxiety disorder, unspecified; D64.9 Anemia, unspecified; D72.829 Elevated white blood cell count, unspecified
CPT/HCPCS: 36415; 80053; 80061; 85025

== ENCOUNTER → 2022-07-07 09:04 | Outpatient (REF) | payer OTHER, SELFPAY ==
--- NOTE | 2022-07-07 09:07 | ECG_ITS ---
Test Reason : pre op Blood Pressure : / mmHG Vent. Rate : 080 BPM Atrial Rate : 080 BPM P-R Int : 132 ms QRS Dur : 082 ms QT Int : 372 ms P-R-T Axes : 076 036 060 degrees QTc Int : 429 ms Normal sinus rhythm Biatrial enlargement Abnormal ECG When compared with ECG of 14-APR-2022 09:33, No significant change was found Referred By: Zoe Portillo Electronically Signed By:Bronson Boothe
== END ==
LOC: HO.CARD 09:04
PROVIDERS: PCP Internal Medicine; Visit Provider Internal Medicine
DX: Z01.818 Encounter for other preprocedural examination (principal)
CPT/HCPCS: 93005

== ENCOUNTER 2022-08-03 09:18 | Outpatient (REF) | payer OTHER, SELFPAY ==
--- NOTE | ~2022-08-03 | MM_ITS ---
EXAMINATION: MM SCREENING DIGITAL BREAST TOMOSYNTHESIS, BILATERAL CLINICAL INFORMATION: Screening. Asymptomatic. No prior breast imaging. Age 42. The lifetime risk of breast cancer based on the Tyrer-Cuzick Model is 9%. COMPARISON: None (current study represents initial baseline exam). TECHNIQUE: Digital breast tomosynthesis is performed in both the craniocaudal and mediolateral oblique views along with computer-aided detection (CAD). Synthesized 2D images are generated from the tomosynthesis. FINDINGS: There are scattered areas of fibroglandular density (ACR BI-RADS breast composition Category b). There are no significant masses, abnormal calcifications, or other abnormalities. No architectural abnormality. The axilla are unremarkable. The skin contours are smooth. There is scattered deodorant artifact overlying both axilla, on the skin on tomography. MM/MM tomosynthesis screening BI IMPRESSION: No mammographic evidence of malignancy. ASSESSMENT: BI-RADS 2: Benign RECOMMENDATION: Routine annual mammography screening. This patient's information was entered into a reminder system with a target due date for their next mammogram.
== END 2022-08-03 09:19 | disposition home or self-care (01) ==
LOC: HO.MAMMO 09:18
PROVIDERS: PCP Internal Medicine; Visit Provider Internal Medicine
DX: Z12.31 Encounter for screening mammogram for malignant neoplasm of breast (principal)
CPT/HCPCS: 77063; 77067

== ENCOUNTER → 2022-08-18 09:43 | Outpatient (BNVA) | payer OTHER, SELFPAY | PROVIDERS: PCP Internal Medicine; Referring Provider Internal Medicine; Visit Provider Surgery | DX: C44.319 Basal cell carcinoma of skin of other parts of face (principal) | CPT/HCPCS: 99202 ==

== ENCOUNTER 2022-11-11 16:30 | Outpatient (AMB) | payer OTHER, SELFPAY ==
--- NOTE | 2022-11-11 16:32 | A.OFFPC_ITS ---
Vital Signs 11/11/22 16:33 Height 5 ft 1 in Weight 114 lb BMI 21.5 BP 112/70 Blood Pressure Location Lt brachial Position Sitting Intake Visit Reasons: anxiety Intake Note: Patient here for a follow up anxiety Primary Teaching Assistant Required: No Accompanied by: Child Allergies barium sulfate Adverse Reaction (Intermediate, Verified 11/11/22 16:51) aggression Medication List - Last Reconciled 11/11/22 by Zoe Portillo MD divalproex 500 mg PO BID 30 days lorazepam (Ativan) 1 mg PO .four times a day PRN 30 days Tobacco use date assessed: 04/27/22 Dental Screening Dental Screen Date: 11/11/22 Did you have a dental visit in the last 12 months?: Yes Did you have a dental problem in the last 6 months where you did not have access to dental care?: No Was dental information given to patient?: Patient has dentist HPI HPI Comments History of Present Illness Details This is a 42-year-old female with bipolar disorder and skin cancer that comes today for follow-up on her anxiety which has been stable with lorazepam. 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 Follow by [facility] in [place]. Her surgeries are in the face and she has to be laying down for recovery. Not able to work. Will benefit from having a 1st floor apartment. PFS Medical History Anxiety Basal cell carcinoma Leukocytosis Scar irritation Smoker Surgical History H/O left wrist surgery History of tubal ligation Family History Father No problems noted. Mother Cancer Skin cancer Family/Other Substance use disorder Mental health disorder Other Breast cancer Pancreatic cancer Social History Housing: Apartment Alcohol intake: former Patient Tobacco Use Status: Current everyday Tobacco user Tobacco use type: Cigarette Cigarettes Per Day: 15 Years Smoked: 29 e-Cigarette/Vaping Use: Never Used Second Hand Smoke Exposure: No service: No Current occupational status: employed Current occupational exposures/hazards: No Cognitive needs: No Hearing needs: No Vision needs: No Questionnaire Thrive Questionnaire Date Thrive assessed: 04/27/22 SHERMAN-7 AMB Questionnaire SHERMAN-7 Date SHERMAN - 7 assessed: 04/27/22 Source: Developed by Drs. Rene Green, Shy Scherer, Axel Raza and colleagues, with an educational nadeem from [employer]. Review of Systems Const All systems reviewed & are unremarkable except as noted in HPI and below Eyes Reports no additional complaints, Denies change in vision and Denies other visual disturbances Card Denies chest pain at rest, Denies chest pain with activity, Denies edema, Denies irregular heart rhythm, Denies claudication, Denies dyspnea, Denies dyspnea on exertion, Denies orthopnea, Denies paroxysmal nocturnal dyspnea and Denies slow heart rate Resp Denies cough, Denies dyspnea and Denies dyspnea on exertion GI Denies abdominal pain, Denies change in bowel habits, Denies excessive flatus, Denies nausea and Denies vomiting Denies urinary incontinence, Denies urinary hesitancy and Denies urinary urgency Musc Denies abnormal gait, Denies atrophy, Denies deformity and Denies limited range of motion Skin/Breast Denies bleeding lesions, Denies changing lesions and Denies rash Neuro Denies abnormal gait, Denies behavioral changes and Denies lack of coordination Psych Denies behavioral changes Physical exam (Primary Care) Vital Signs: Last Vital Signs BP 112/70 11/11/22 16:33 BMI result Body Mass Index 21.5 Tobacco/Smoking Status: Tobacco use Status Tobacco use date assessed 04/27/22 11/11/22 16:34 Patient Tobacco Use Status Current everyday Tobacco 11/11/22 16:34 Tobacco use type Cigarette 11/11/22 16:34 e-Cigarette/Vaping Use Never Used 11/11/22 16:34 Thrive Assessment: Date of Thrive Assessment Date Thrive assessed 04/27/22 11/11/22 16:34 Eyes General: appearance normal, both eyes and all related structures Eyelids: Yes eyelids normal Conjunctivae: conjunctivae normal Neck Neck: Yes normal visual inspection and Yes supple Resp Effort & Inspection: normal respiratory effort Auscultation: clear to auscultation bilaterally Cardio Jugular venous distension: no JVD Rate: regular rate Rhythm: regular rhythm Heart sounds: S1 normal heart sound present and S2 normal heart sound present Extrem General: Yes full ROM Assessment and Plan Assessment & Plan (1) Bipolar 1 disorder: Code(s): F31.9 - Bipolar disorder, unspecified Plan: Continue divalproex. (2) Skin cancer: Code(s): C44.90 - Unspecified malignant neoplasm of skin, unspecified Plan: Follow-up with [facility]. Medications: New lorazepam 2 mg PO BID 30 days PRN 60 tabs 0RF anxiety Discontinued lorazepam (Ativan) Discontinued Reason: Patient Completed Course 1 mg PO .four times a day 30 days PRN 120 tabs 0RF anxiety Coding Level of Care Code Est Pt Level 3 (16392) Diagnoses Bipolar 1 disorder F31.9 Skin cancer C44.90 Time Spent (min) 18
[2022-11-11 16:33] VITALS: BP 112/70; BMI 21.5
== END 2022-11-11 17:06 | disposition home or self-care (01) ==
PROVIDERS: PCP Internal Medicine; Visit Provider Internal Medicine
DX: F31.9 Bipolar disorder, unspecified (principal); C44.90 Unspecified malignant neoplasm of skin, unspecified
CPT/HCPCS: 99213

== ENCOUNTER 2023-05-10 10:28 | Outpatient (AMB) | payer OTHER, SELFPAY ==
--- NOTE | 2023-05-10 10:39 | MHC.PC.OV ---
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 Required: No Accompanied by: Self / Same As Patient Allergies barium sulfate Adverse Reaction (Intermediate, Verified 05/10/23 10:52) aggression Medication List - Last Reconciled 05/10/23 by Zoe Portillo MD divalproex 500 mg PO BID 30 days lorazepam 1 mg PO .Every 6 hours PRN 30 days Tobacco use date assessed: 05/10/23 Dental Screening Dental Screen Date: 05/10/23 Did you have a dental visit in the last 12 months?: Yes Did you have a dental problem in the last 6 months where you did not have access to dental care?: No Was dental information given to patient?: Patient has dentist HPI HPI Comments History of Present Illness Details This is a 43-year-old female with bipolar disorder that comes for her physical exam. Bipolar disorder well control with medications. Last Pap smear was 2014 and will be referred to OBGYN for this matter. Has history of skin cancer removed in 2022. No chest pain or shortness of breath. Anxiety somewhat stable with benzodiazepines as needed and patient is aware that can cause addiction and sedation. [facility] Medical History (Updated 05/10/23 @ 11:01 by Zoe Portillo MD) Basal cell carcinoma Smoker Leukocytosis Anxiety Scar irritation Surgical History (Updated 05/10/23 @ 11:03 by Zoe Portillo MD) History of skin surgery History of tubal ligation H/O left wrist surgery Family History Father No problems noted. Mother Cancer Skin cancer Family/Other Substance use disorder Mental health disorder Other Breast cancer Pancreatic cancer Social History Housing: Apartment Alcohol intake: former Patient Tobacco Use Status: Current everyday Tobacco user Tobacco use type: Cigarette Cigarettes Per Day: 10 Years Smoked: 29 e-Cigarette/Vaping Use: Never Used Second Hand Smoke Exposure: No service: No Current occupational status: employed Current occupational exposures/hazards: No Cognitive needs: No Hearing needs: No Vision needs: No Questionnaire PHQ-9 Over the last 2 weeks, how often have you been bothered by any of the following problems? 1. Little interest or pleasure in doing things: not at all 2. Feeling down, depressed, or hopeless: not at all 3. Trouble falling or staying asleep, or sleeping too much: not at all 4. Feeling tired or having little energy: not at all 5. Poor appetite or overeating: not at all 6. Feeling bad about yourself - or that you are a failure or have let yourself or your family down: not at all 7. Trouble concentrating on things, such as reading the newspaper or watching television: not at all 8. Moving or speaking so slowly that other people could have noticed. Or the opposite - being so fidgety or restless that you have been moving around a lot more than usual: not at all 9. Thoughts that you would be better off or of hurting yourself in some way: not at all Total score: 0 Depression Screening Interpretation: Negative Depression Screening Done: Yes 16745 - PHQ-9 Billing: Yes Source: Developed by Drs. Rene Green, Shy Scherer, Axel Raza and colleagues, with an educational nadeem from [employer]. Thrive Questionnaire Date Thrive assessed: 05/10/23 I am a: Patient What is your living situation today?: I have a steady place to live Within the past 12 months, did the food you bought not last and you didn't have the money to get more?: Never true Within the past 12 months, did you worry whether your food would run out before you got money to buy more?: Never true Do you have trouble paying for medicines?: No Do you have trouble getting transportation to medical appointments?: No Do you have trouble paying your heating and electricity bill?: No Do you have trouble taking care of your child, family member or friend?: No Do you have trouble with day-to-day activities such as bathing, preparing meals, shopping, managing finances, etc.?: No Are you currently unemployed and looking for a job?: No Are you interested in more education?: No Please select the resources that you would like help with: None Currently or been in a relationship where the following occur: no concerns reported THRIVE Score: 0 AUDIT C Alcohol Use Questionnaire (AUDIT-C) 1. How often do you have a drink containing alcohol?: Never Total Score: 0 SHERMAN-7 AMB Questionnaire SHERMAN-7 Date SHERMAN - 7 assessed: 05/10/23 Feeling nervous, anxious, or on edge: 3 = Nearly every day Not being able to stop or control worryin = Several days Worrying too much about different things: 3 = Nearly every day Trouble relaxin = Several days Being so restless that it is hard to sit still: 0 = Not at all Becoming easily annoyed or irritable: 1 = Several days Feeling afraid as if something awful might happen: 0 = Not at all Total SHERMAN-7 score (0-4 normal; 5-9 mild; 10-14 moderate; 15-21 severe): 9 Source: Developed by Drs. Rene Green, Shy Scherer, Axel Raza and colleagues, with an educational nadeem from [employer]. SHERMAN-7 Assessment Billing SHERMAN-7 Assessment Tool: SHERMAN-7 Assessment 62189 Review of Systems Const All systems reviewed & are unremarkable except as noted in HPI and below Eyes Reports no additional complaints, Denies change in vision and Denies other visual disturbances Card Denies chest pain at rest, Denies chest pain with activity, Denies edema, Denies irregular heart rhythm, Denies claudication, Denies dyspnea, Denies dyspnea on exertion, Denies orthopnea, Denies paroxysmal nocturnal dyspnea and Denies slow heart rate Resp Denies cough, Denies dyspnea and Denies dyspnea on exertion GI Denies abdominal pain, Denies change in bowel habits, Denies excessive flatus, Denies nausea and Denies vomiting Denies urinary incontinence, Denies urinary hesitancy and Denies urinary urgency Musc Denies abnormal gait, Denies atrophy, Denies deformity and Denies limited range of motion Skin/Breast Denies bleeding lesions, Denies changing lesions and Denies rash Neuro Denies abnormal gait and Denies lack of coordination Physical exam (Primary Care) Vital Signs: Last Vital Signs BP 116/72 05/10/23 10:40 BMI result Body Mass Index 22.5 Tobacco/Smoking Status: Tobacco use Status Tobacco use date assessed 05/10/23 05/10/23 10:48 Patient Tobacco Use Status Current everyday Tobacco 05/10/23 10:48 Tobacco use type Cigarette 05/10/23 10:48 e-Cigarette/Vaping Use Never Used 05/10/23 10:48 PHQ-9: PHQ-9 Score PHQ-9: Total score 0 05/10/23 10:48 Depression Screening Interpretation: Negative Thrive Assessment: Date of Thrive Assessment Date Thrive assessed 05/10/23 05/10/23 10:48 Currently or been in a relationship where the following occur: no concerns reported Const Orientation/consciousness: patient oriented x3 HENMT Ears: external ears normal Eyes General: appearance normal, both eyes and all related structures Eyelids: Yes eyelids normal Conjunctivae: conjunctivae normal Neck Neck: Yes normal visual inspection and Yes supple Resp Effort & Inspection: normal respiratory effort Auscultation: clear to auscultation bilaterally Cardio Jugular venous distension: no JVD Rate: regular rate Rhythm: regular rhythm Heart sounds: S1 normal heart sound present and S2 normal heart sound present GI Inspection: Yes normal to inspection Palpation (GI): Soft to palpation and nontender Auscultation: normal bowel sounds Skin General skin exam: no rashes or lesions noted Neuro General: patient oriented x3 and no focal motor deficits Extrem General: Yes full ROM Psych Appearance: grossly normal Assessment and Plan Assessment & Plan (1) Physical exam: Code(s): Z00.00 - Encounter for general adult medical examination without abnormal findings Plan: Repeat in a year. (2) Bipolar 1 disorder: Code(s): F31.9 - Bipolar disorder, unspecified Plan: Continue divalproex. Orders: Orders Complete Blood Count Auto Diff Today C44.90 - Unspecified malignant neoplasm of skin, unspecified Lipid Panel Today Z00.00 - Encounter for general adult medical examination without abnormal findings Comprehensive [place]. Panel Fast Today Z00.00 - Encounter for general adult medical examination without abnormal findings Referrals PUBLIC DEFENDER Referral Z12.4 - Encounter for screening for malignant neoplasm of cervix Coding Level of Care Code Est Pt Prev Care 40-64y(26692) Diagnoses Physical exam Z00.00 Bipolar 1 disorder F31.9 Additional Codes SHERMAN-7 Assessment Billing - SHERMAN-7 Assessment Tool: SHERMAN-7 Assessment [id number] ([id number]) Time Spent (min) 32
[2023-05-10 10:40] VITALS: BP 116/72; BMI 22.5
== END 2023-05-10 11:15 | disposition home or self-care (01) ==
PROVIDERS: PCP Internal Medicine; Visit Provider Internal Medicine
DX: Z00.00 Encounter for general adult medical examination without abnormal findings (principal); F31.9 Bipolar disorder, unspecified; Z85.828 Personal history of other malignant neoplasm of skin; F17.210 Nicotine dependence, cigarettes, uncomplicated
CPT/HCPCS: 99396

== ENCOUNTER 2023-07-21 09:56 | Emergency (ER) | payer OTHER, SELFPAY ==
[2023-07-21 10:01] VITALS: BP 123/79; PULSE 87; RESP 18; TEMP 36.1; O2SAT 98; BMI 21.7
[2023-07-21 10:50] LABS: IDNOW Serial# 08D9AD1C; Strep A Nucleic Acid Negative (Negative)
--- NOTE | 2023-07-21 11:50 | ED.GENADULT ---
HPI - General Adult General Chief complaint: General Medical Stated complaint: Sore throat Time Seen by Provider: 07/21/23 10:26 Related Data Previous Rx's ?Medication ?Instructions ?Recorded divalproex 500 mg tablet,delayed 500 mg PO BID 30 days #60 tabs 02/24/23 release lorazepam 1 mg tablet 1 mg PO .Every 6 hours PRN anxiety 07/18/23 30 days #120 tabs amoxicillin 500 mg tablet 500 mg PO BID #20 tabs 07/21/23 Allergies Allergy/AdvReac Type Severity Reaction Status Date / Time barium sulfate AdvReac Intermediate aggression Verified 07/21/23 10:02 [facility] Past Medical History Medical History (Updated 07/21/23 @ 12:06 by ALVIN Ardon) Basal cell carcinoma Smoker Leukocytosis Anxiety Scar irritation Surgical History (Updated 05/10/23 @ 11:03 by Zoe Portillo MD) History of skin surgery History of tubal ligation H/O left wrist surgery Family History Family History Father No problems noted. Mother Cancer Skin cancer Family/Other Substance use disorder Mental health disorder Other Breast cancer Pancreatic cancer Social History Social History Housing: Apartment Alcohol intake: former Patient Tobacco Use Status: Current everyday Tobacco user Tobacco use type: Cigarette Cigarettes Per Day: 10 Years Smoked: 29 e-Cigarette/Vaping Use: Never Used Second Hand Smoke Exposure: No Advance Directives: No service: No Current occupational status: employed Current occupational exposures/hazards: No Cognitive needs: No Hearing needs: No Vision needs: No Physical Exam ED Vital Signs: Vital Signs - 24 hr 07/21/23 10:01 07/21/23 12:22 Temperature 97 F 98 F Pulse Rate 87 80 Respiratory Rate 18 14 Blood Pressure 123/79 120/60 Pulse Oximetry 98 99 Oxygen Delivery Method Room Air Room Air BMI result Body Mass Index 21.7 Medical Decision Making Lab Data Labs: Lab Results 07/21/23 Range/Units 10:08 S. pyogenes GrpA MAYNOR Negative (Negative) Discharge Plan Discharge Clinical Impression: Pharyngitis Qualifiers: Pharyngitis/tonsillitis etiology: unspecified etiology Qualified Code(s): J02.9 - Acute pharyngitis, unspecified Patient Disposition: Home, Self-Care Instructions: Pharyngitis (ED) Additional Instructions: you tested negative for strep throat today however given the fact that your son was tested positive and you shared drinks and you have symptoms, your being started on antibiotics. Take the prescribed antibiotics as directed, complete the entire course and do not miss any doses Use warm salt water gargles and take [id number] Motrin and Tylenol as needed for pain. Rest and drink plenty of fluids. If you develop new or worsening symptoms call 911 or come back to the ER for further evaluation. Prescriptions: New amoxicillin 500 mg tablet 500 mg PO BID Qty: 20 0RF No Action divalproex 500 mg tablet,delayed release (DR/EC) 500 mg PO BID 30 Days Qty: 60 6RF lorazepam 1 mg tablet 1 mg PO .Every 6 hours PRN (Reason: anxiety) 30 Days Qty: 120 0RF Interventions: ED Discharge Assessment Last Done: 07/21/23 12:22 Discharge Date/Time: 07/21/23 12:23 Print Language: Guinean
--- NOTE | 2023-07-21 11:51 | ED.GENADULT ---
HPI - General Adult General Chief complaint: General Medical Stated complaint: Sore throat Time Seen by Provider: 07/21/23 10:26 Source: patient Mode of arrival: ambulatory Limitations: no limitations History of Present Illness HPI narrative: 43 yo female with PMH significant for microcystic adnexal carcinoma of the skin and bipolar I disorder, who presents alongside her young son for evaluation of scratchy throat that she noticed today. Her son presents with similar symptoms that began yesterday. She states they have been in close contact, along with sharing beverages. She denies any associated symptoms, including fever, chills, or difficulty swallowing. complaint: Sore throat Onset (ago): day(s) Location: mouth (Throat) Radiation: non-radiation Quality: other (Scratchy ) Associated symptoms: denies other symptoms Related Data Previous Rx's ?Medication ?Instructions ?Recorded divalproex 500 mg tablet,delayed 500 mg PO BID 30 days #60 tabs 02/24/23 release lorazepam 1 mg tablet 1 mg PO .Every 6 hours PRN anxiety 07/18/23 30 days #120 tabs amoxicillin 500 mg tablet 500 mg PO BID #20 tabs 07/21/23 Allergies Allergy/AdvReac Type Severity Reaction Status Date / Time barium sulfate AdvReac Intermediate aggression Verified 07/21/23 10:02 Review of Systems Review of Systems: Yes all other systems are reviewed and are negative [facility] Past Medical History Medical History (Updated 07/21/23 @ 12:06 by ALVIN Ardon) Basal cell carcinoma Smoker Leukocytosis Anxiety Scar irritation Surgical History (Updated 05/10/23 @ 11:03 by Zoe Portillo MD) History of skin surgery History of tubal ligation H/O left wrist surgery Family History Family History Father No problems noted. Mother Cancer Skin cancer Family/Other Substance use disorder Mental health disorder Other Breast cancer Pancreatic cancer Social History Social History Housing: Apartment Alcohol intake: former Patient Tobacco Use Status: Current everyday Tobacco user Tobacco use type: Cigarette Cigarettes Per Day: 10 Years Smoked: 29 e-Cigarette/Vaping Use: Never Used Second Hand Smoke Exposure: No Advance Directives: No service: No Current occupational status: employed Current occupational exposures/hazards: No Cognitive needs: No Hearing needs: No Vision needs: No Physical Exam ED Vital Signs: Vital Signs - 24 hr 07/21/23 10:01 07/21/23 12:22 Temperature 97 F 98 F Pulse Rate 87 80 Respiratory Rate 18 14 Blood Pressure 123/79 120/60 Pulse Oximetry 98 99 Oxygen Delivery Method Room Air Room Air BMI result Body Mass Index 21.7 Appearance: Alert. Oriented X3. No acute distress. HEENT: normal inspection. no tonsillar swelling or exudate. normal voice. normal TMs bilaterally. CVS: Normal heart rate and rhythm. Pulses normal. Respiratory: No respiratory distress. Lungs CTAB Skin: Skin warm and dry. Normal skin color. Normal skin turgor. No rashes. Neuro: Oriented X 3. No motor deficit. No sensory deficit. Medical Decision Making Medical Decision Making [facility] Narrative: 43 yo female with PMH significant for microcystic adnexal carcinoma of the skin and bipolar I disorder, who presents alongside her young son for evaluation of scratchy throat that she noticed today. Her son presents with similar symptoms and tested positive for streptococcal pharyngitis. She has tested negative for strep at this time. patient was sharing drinks with her son today. Could be a false negative test. Could be too early for her to test positive. Given her known exposure will empirically treat with amoxicillin. Patient agrees with plan. Stable for discharge home. Differential Diagnosis Differential Diagnoses: The differential diagnosis associated with the presentation includes Streptococcal pharyngitis, seasonal allergies, influenza, COVID-19 Lab Data [facility] Lab Attestation statement: I reviewed the patient's lab results. Strep pyogenes Group A MAYNOR negative. Labs: Lab Results 07/21/23 Range/Units 10:08 S. pyogenes GrpA MAYNOR Negative (Negative) External Record Review External record reviewed: Outpatient record and Prior outpatient labs Prescription Management I considered prescription management with: Pain Medication and Antibiotic Critical Care Time Critical Care Time Critical Care Time: No Discharge Plan Discharge Clinical Impression: Pharyngitis Qualifiers: Pharyngitis/tonsillitis etiology: unspecified etiology Qualified Code(s): J02.9 - Acute pharyngitis, unspecified Patient Disposition: Home, Self-Care Instructions: Pharyngitis (ED) Additional Instructions: you tested negative for strep throat today however given the fact that your son was tested positive and you shared drinks and you have symptoms, your being started on antibiotics. Take the prescribed antibiotics as directed, complete the entire course and do not miss any doses Use warm salt water gargles and take [id number] Motrin and Tylenol as needed for pain. Rest and drink plenty of fluids. If you develop new or worsening symptoms call 911 or come back to the ER for further evaluation. Prescriptions: New amoxicillin 500 mg tablet 500 mg PO BID Qty: 20 0RF No Action divalproex 500 mg tablet,delayed release (DR/EC) 500 mg PO BID 30 Days Qty: 60 6RF lorazepam 1 mg tablet 1 mg PO .Every 6 hours PRN (Reason: anxiety) 30 Days Qty: 120 0RF Interventions: ED Discharge Assessment Last Done: 07/21/23 12:22 Discharge Date/Time: 07/21/23 12:23 Print Language: Malay
[2023-07-21 12:22] VITALS: BP 120/60; PULSE 80; RESP 14; TEMP 36.6; O2SAT 99
== END 2023-07-21 12:23 | disposition home or self-care (01) ==
PROVIDERS: Emergency Provider Emergency Medicine; PCP Internal Medicine
DX: J02.9 Acute pharyngitis, unspecified (principal); F17.210 Nicotine dependence, cigarettes, uncomplicated
CPT/HCPCS: 87651; 99282; 99283

== ENCOUNTER 2023-09-20 07:38 | Outpatient (REF) | payer OTHER, SELFPAY ==
[2023-09-20 10:43] LABS: MANUAL DIFF FLAG NO
[2023-09-20 10:55] LABS: Basophils Absolute Auto 0.1 X10*3/uL (0.0-0.2); Basophils Percent Auto 0.6 % (0-2); Eosinophils Absolute Auto 0.1 X10*3/uL (0.0-0.4); Eosinophils Percent Auto 1.2 % (0-4); Hematocrit 42.8 % (37.0-47.0); Hemoglobin 14.7 g/dl (12.0-16.0); Imm Gran Abs Auto 0.04 X10*3/uL (0.00-0.03); Imm Gran Pct Auto 0.4 % (0.0-0.4); Lymphocytes Absolute Auto 1.7 X10*3/uL (1.2-4.9); Lymphocytes Percent Auto 16.8 % (20-40); Mean Corpuscular HGB Conc 34.3 g/dl (31.0-35.0); Mean Corpuscular Volume 90.3 fL (80.0-98.0); Mean Platelet Volume 10.4 fL (9.4-12.3); Monocytes Absolute Auto 0.4 X10*3/uL (0.1-1.2); Monocytes Percent Auto 4.4 % (2-11); Neutrophils Absolute Auto 7.6 x10*3/uL (2.0-8.3); Neutrophils Percent Auto 76.6 % (45-73); Platelet Count 177 X10*3/uL (160-400); Red Blood Count 4.74 X10*6/uL (4.20-5.50); White Blood Count 9.9 X10*3/uL (4.8-10.8)
[2023-09-20 11:31] LABS: Alanine Aminotransferase 12 U/L (0-31); Albumin Level 4.1 g/dL (3.5-5.0); Alkaline Phosphatase 55 U/L (39-117); Anion Gap 10 (12-20); Aspartate Amino Transferase 13 U/L (5-31); Bilirubin Total 0.2 mg/dL (0.0-1.0); Blood Urea Nitrogen 12 mg/dL (9-16); Calcium 9.2 mg/dL (8.4-10.2); Carbon Dioxide 27 mmol/L (22-29); Chloride 108 mmol/L (96-108); Cholesterol 174 mg/dL (<200); Estimated Glomerular Filt Rate > 60; Glucose Fasting 114 mg/dL (60-99); HDL Cholesterol 42 mg/dL (>40); LDL Cholesterol Calculated 116 mg/dL (<100); Potassium 4.4 mmol/L (3.3-5.1); Sodium 141 mmol/L (135-145); Total Protein 6.4 g/dL (6.5-8.0); Triglycerides 82 mg/dL (<150)
== END 2023-09-20 07:39 | disposition home or self-care (01) ==
LOC: HO.10HDL 07:38
PROVIDERS: Visit Provider Internal Medicine
DX: Z00.00 Encounter for general adult medical examination without abnormal findings (principal); C44.90 Unspecified malignant neoplasm of skin, unspecified
CPT/HCPCS: 36415; 80053; 80061; 85025

== ENCOUNTER 2023-09-21 07:50 | Outpatient (REF) | payer OTHER, SELFPAY ==
--- NOTE | ~2023-09-21 | MM_ITS ---
EXAMINATION: MM SCREENING DIGITAL BREAST TOMOSYNTHESIS, BILATERAL CLINICAL INFORMATION: Screening. Asymptomatic. COMPARISON: Mammography: This study is compared with prior exams dating back to 2022. TECHNIQUE: Digital breast tomosynthesis is performed in both the craniocaudal and mediolateral oblique views along with computer-aided detection (CAD). Synthesized 2D images are generated from the tomosynthesis. FINDINGS: There are scattered areas of fibroglandular density (ACR BI-RADS breast composition Category b). There are no significant masses, abnormal calcifications, or other abnormalities. MM/MM tomosynthesis screening BI IMPRESSION: No mammographic evidence of malignancy. ASSESSMENT: BI-RADS BI-RADS 1 - Negative RECOMMENDATION: Routine annual mammography screening. 1 year F/U This examination should not preclude the clinical evaluation of a suspicious palpable abnormality. This patient's information was entered into a reminder system with a target due date for their next mammogram.
== END 2023-09-21 07:51 | disposition home or self-care (01) ==
LOC: HO.MAMMO 07:50
PROVIDERS: PCP Internal Medicine; Visit Provider Internal Medicine
DX: Z12.31 Encounter for screening mammogram for malignant neoplasm of breast (principal)
CPT/HCPCS: 77063; 77067

== ENCOUNTER → 2023-09-21 08:15 | Outpatient (BNV) | payer OTHER, SELFPAY | PROVIDERS: PCP Internal Medicine; Visit Provider Radiology Diagnostic Radiology | DX: Z12.31 Encounter for screening mammogram for malignant neoplasm of breast (principal) | CPT/HCPCS: 77063; 77067 ==

== ENCOUNTER 2023-11-08 07:42 | Outpatient (AMB) | payer OTHER, SELFPAY ==
[2023-11-08 07:48] VITALS: BP 114/68; PULSE 77; O2SAT 98
--- NOTE | 2023-11-08 07:48 | MHC.PC.OV ---
Vital Signs 11/08/23 07:48 Height 5 ft 1 in Weight 106 lb BMI 20.0 BP 114/68 Blood Pressure Location Lt brachial Position Sitting Pulse 77 Pulse Source Pulse Oximeter Pulse Oximetry (%) 98 Oxygen Delivery Method Room Air Intake Visit Reasons: anxiety [employer] Supervisor Required: No Accompanied by: Self / Same As Patient Allergies barium sulfate Adverse Reaction (Intermediate, Verified 11/08/23 08:06) aggression Medication List - Last Reconciled 11/08/23 by Zoe Portillo MD divalproex 500 mg PO BID 30 days lorazepam 1 mg PO .Every 6 hours PRN 30 days Tobacco use date assessed: 11/08/23 Dental Screening Dental Screen Date: 11/08/23 Did you have a dental visit in the last 12 months?: Yes Did you have a dental problem in the last 6 months where you did not have access to dental care?: No Was dental information given to patient?: Patient has dentist HPI HPI Comments History of Present Illness Details This is a 43-year-old female with bipolar disorder, anxiety and impaired glucose tolerance that comes today for follow-up on conditions. Bipolar disorder stable with Depakote. Anxiety well controlled with benzodiazepines also she has been more anxious recently and is asking for an increase in lorazepam. I advised her that lorazepam can cause addiction and memory loss. I will increase it but not anymore and she is aware. She will need Psychiatry if this is not enough for her. She does have elevated fasting blood glucose but denies any polyuria, polydipsia or unintentional weight loss. Fasting blood glucose will be repeated next month. [facility] Medical History (Updated 11/08/23 @ 08:13 by Zoe Portillo MD) Basal cell carcinoma Smoker Leukocytosis Anxiety Scar irritation Surgical History History of skin surgery History of tubal ligation H/O left wrist surgery Family History Father No problems noted. Mother Cancer Skin cancer Family/Other Substance use disorder Mental health disorder Other Breast cancer Pancreatic cancer Social History Housing: Apartment Alcohol intake: former Patient Tobacco Use Status: Current everyday Tobacco user Tobacco use type: Cigarette Cigarettes Per Day: 20 Years Smoked: 29 Packs per year/per ci.00 e-Cigarette/Vaping Use: Never Used Second Hand Smoke Exposure: No service: No Current occupational status: employed Current occupational exposures/hazards: No Cognitive needs: No Hearing needs: No Vision needs: No Questionnaire PHQ-9 Over the last 2 weeks, how often have you been bothered by any of the following problems? 1. Little interest or pleasure in doing things: not at all 2. Feeling down, depressed, or hopeless: not at all 3. Trouble falling or staying asleep, or sleeping too much: not at all 4. Feeling tired or having little energy: not at all 5. Poor appetite or overeating: not at all 6. Feeling bad about yourself - or that you are a failure or have let yourself or your family down: not at all 7. Trouble concentrating on things, such as reading the newspaper or watching television: not at all 8. Moving or speaking so slowly that other people could have noticed. Or the opposite - being so fidgety or restless that you have been moving around a lot more than usual: not at all 9. Thoughts that you would be better off or of hurting yourself in some way: not at all Total score: 0 Depression Screening Interpretation: Negative Depression Screening Done: Yes 77445 - PHQ-9 Billing: Yes Source: Developed by Drs. Rene Green, Shy Scherer, Axel Raza and colleagues, with an educational nadeem from [employer] Thrive Questionnaire Date Thrive assessed: 05/10/23 AUDIT C Alcohol Use Questionnaire (AUDIT-C) 1. How often do you have a drink containing alcohol?: Never 3. How often do you have six or more drinks on one occasion?: Never Total Score: 0 Score Reviewed/Action Taken: No SHERMAN-7 AMB Questionnaire SHERMAN-7 Date SHERMAN - 7 assessed: 11/08/23 Feeling nervous, anxious, or on edge: 3 = Nearly every day Not being able to stop or control worryin = Nearly every day Worrying too much about different things: 2 = More than half the days Trouble relaxin = Nearly every day Being so restless that it is hard to sit still: 1 = Several days Becoming easily annoyed or irritable: 1 = Several days Feeling afraid as if something awful might happen: 3 = Nearly every day Total SHERMAN-7 score (0-4 normal; 5-9 mild; 10-14 moderate; 15-21 severe): 16 Source: Developed by Drs. Rene Green, Shy Scherer, Axel Raza and colleagues, with an educational nadeem from [employer] SHERMAN-7 Assessment Billing SHERMAN-7 Assessment Tool: SHERMAN-7 Assessment 24664 Review of Systems Const All systems reviewed & are unremarkable except as noted in HPI and below Card Denies chest pain at rest, Denies chest pain with activity, Denies edema, Denies irregular heart rhythm, Denies claudication, Denies dyspnea, Denies dyspnea on exertion, Denies orthopnea, Denies paroxysmal nocturnal dyspnea and Denies slow heart rate Resp Denies cough, Denies dyspnea and Denies dyspnea on exertion GI Denies abdominal pain, Denies change in bowel habits, Denies excessive flatus, Denies nausea and Denies vomiting Denies urinary incontinence, Denies urinary hesitancy and Denies urinary urgency Musc Denies abnormal gait, Denies atrophy, Denies deformity and Denies limited range of motion Skin/Breast Denies bleeding lesions, Denies changing lesions and Denies rash Neuro Denies abnormal gait, Denies behavioral changes and Denies lack of coordination Psych Denies behavioral changes Physical exam (Primary Care) Vital Signs: Last Vital Signs Pulse 77 11/08/23 07:48 BP 114/68 11/08/23 07:48 Pulse Ox 98 11/08/23 07:48 Oxygen Delivery Method Room Air 11/08/23 07:48 BMI result Body Mass Index 20.0 Tobacco/Smoking Status: Tobacco use Status Tobacco use date assessed 11/08/23 11/08/23 07:54 Patient Tobacco Use Status Current everyday Tobacco 11/08/23 07:54 Tobacco use type Cigarette 11/08/23 07:54 e-Cigarette/Vaping Use Never Used 11/08/23 07:54 Are you ready to quit: No Tobacco cessation counseling provided: Yes Items discussed: Nicotine replacement and QuitWorks Relapse Prevention: discussed the importance of a supportive environment Number of minutes spent counselin CPT code: Less than 3 minutes PHQ-9: PHQ-9 Score PHQ-9: Total score 0 11/08/23 08:46 Depression Screening Interpretation: Negative Thrive Assessment: Date of Thrive Assessment Date Thrive assessed 05/10/23 11/08/23 07:54 Resp Effort & Inspection: normal respiratory effort Auscultation: clear to auscultation bilaterally Cardio Jugular venous distension: no JVD Rate: regular rate Rhythm: regular rhythm Heart sounds: S1 normal heart sound present and S2 normal heart sound present Extrem General: Yes full ROM Assessment and Plan Assessment & Plan (1) Impaired glucose tolerance: Code(s): R73.02 - Impaired glucose tolerance (oral) Plan: Repeat fasting blood glucose. (2) Bipolar 1 disorder: Code(s): F31.9 - Bipolar disorder, unspecified Plan: Continue Depakote. (3) Anxiety: Code(s): F41.9 - Anxiety disorder, unspecified Plan: Increase lorazepam to 1 mg every 4 hours as needed. Aware that lorazepam can cause addiction and sedation as well as memory loss. Orders: Orders Comprehensive [place]. Panel Fast Today R73.02 - Impaired glucose tolerance (oral) Valproate Today F31.9 - Bipolar disorder, unspecified Medications: Changed From lorazepam 1 mg PO .Every 6 hours 30 days PRN 120 tabs 0RF anxiety To lorazepam 1 mg PO .every 4 hours PRN 180 tabs 0RF anxiety 30 days Coding Level of Care Code Est Pt Level 3 (15298) Complex EM visit Add On G2211 Diagnoses Impaired glucose tolerance R73.02 Bipolar 1 disorder F31.9 Anxiety F41.9 Additional Codes SHERMAN-7 Assessment Billing - SHERMAN-7 Assessment Tool: SHERMAN-7 Assessment [id number] ([id number]) Time Spent (min) 19
== END 2023-11-08 08:23 | disposition home or self-care (01) ==
PROVIDERS: PCP Internal Medicine; Visit Provider Internal Medicine
DX: R73.02 Impaired glucose tolerance (oral) (principal); F31.9 Bipolar disorder, unspecified; F41.9 Anxiety disorder, unspecified
CPT/HCPCS: 99213; G2211